=== PATIENT | male | born 1950 | race Caucasian/White ===

== ENCOUNTER → 2018-05-17 | Outpatient (CLI) | payer BC ==
--- NOTE | 2018-05-17 14:06 | XR ---
EXAMINATION TYPE: XR shoulder complete LT DATE OF EXAM: 05/17/2018 COMPARISON: NONE HISTORY: 68-year-old male with chronic left shoulder pain TECHNIQUE: 3 views FINDINGS: Mild degenerative spurring at the acromioclavicular joint. Mild sclerosis of the greater tuberosity s uggesting chronic rotator cuff tendinopathy. Subacromial space is preserved. No acute fracture, sublu xation, or dislocation. IMPRESSION: Mild left AC joint OA. No acute osseous abnormality seen.
== END ==
LOC: RADXRYALE 13:50
PROVIDERS: ATTEND Internal Medicine
DX: M19.012 Primary osteoarthritis, left shoulder (principal)

== ENCOUNTER → 2021-08-24 | Outpatient (CLI) | payer MEDICARE, OTHER ==
--- NOTE | 2021-08-24 10:47 | XR ---
EXAMINATION TYPE: XR elbow complete LT DATE OF EXAM: 08/24/2021 CLINICAL HISTORY: Swelling and pain. TECHNIQUE: Frontal, lateral and oblique images of the left elbow are obtained. COMPARISON: None FINDINGS: There is no acute fracture/dislocation evident in the left elbow. No abnormal fat pad sig ns are seen. No suspicious bony destruction. The overlying soft tissue appears unremarkable particul geri over the posterior aspect of the olecranon. IMPRESSION: As above.
== END | disposition home or self-care (01) ==
LOC: RADXRYALE 10:16
PROVIDERS: ATTEND Internal Medicine
DX: M70.22 Olecranon bursitis, left elbow (principal)

== ENCOUNTER → 2024-01-03 | Outpatient (CLI) | payer MEDICARE ==
[2024-01-03 14:54] LABS: Basophils # (A) 0.06 X 10*3/uL (0.00-0.10); Basophils % (A) 0.7 %; Eosinophils # (A) 0.38 X 10*3/uL (0.04-0.35); Eosinophils % (A) 4.5 %; HCT 42.5 % (39.6-50.0); HGB 13.3 g/dL (13.0-17.0); Lymphocytes # (A) 1.62 X 10*3/uL (0.90-5.00); Lymphocytes % (A) 19.3 %; MCH 28.8 pg (27.0-32.0); MCHC 31.3 g/dL (32.0-37.0); Mean Platelet Volume 10.2 FL (9.5-12.2); Monocytes # (A) 0.64 X 10*3/uL (0.20-1.00); Monocytes % (A) 7.6 %; NRBC Per 100 WBC 0 X 10*3/uL (0.00-0.01); Neutrophils # (A) 5.66 X 10*3/uL (1.80-7.70); Neutrophils % (A) 67.5 %; Platelet Count 325 X 10*3/uL (140-440); RBC 4.62 X 10*6/uL (4.40-5.60); RDW 14.4 % (11.5-14.5); WBC 8.39 X 10*3/uL (4.50-10.00)
[2024-01-03 18:38] LABS: BUN/Creat Ratio 25.62 Ratio (12.00-20.00); Blood Urea Nitrogen 20.5 mg/dL (9.0-27.0); Calcium 9.4 mg/dL (8.7-10.3); Carbon Dioxide 27.9 mmol/L (21.6-31.8); Chloride 98 mmol/L (96-109); Glucose 156 mg/dL (70-110); Potassium 4.5 mmol/L (3.5-5.5); Sodium 137 mmol/L (135-145)
== END | disposition home or self-care (01) ==
LOC: LABPAT 09:24
PROVIDERS: ATTEND Orthopaedic Surgery Hand Surgery
DX: Z01.818 Encounter for other preprocedural examination (principal); I51.89 Other ill-defined heart diseases; I45.10 Unspecified right bundle-branch block; G56.02 Carpal tunnel syndrome, left upper limb; R94.31 Abnormal electrocardiogram [ECG] [EKG]
CPT/HCPCS: 80048; 85025

== ENCOUNTER 2024-01-18 08:32 | Day surgery (SDC) | payer MEDICARE, OTHER ==
--- NOTE | 2024-01-17 10:29 | P.HPOR ---
History of Present Illness H&P Date: 01/17/24 Subjective: This is a 73 year old male that presents today for initial evaluation regarding a several year history of progressively worsening left hand paresthesias in the thumb, index, middle and ring fingers. The patient has tried bracing at night time with only temporary relief. The patient denies any inciting event or neck pain. Physical Examination: LUE: AIN/PIN/Radial/Ulnar/Median motor intact. Radial/Ulnar/Median SILT. 2+/4 Radial/Ulnar pulses palpated. 5/5 APB, 5/5 FDI. Negative Finkelsteins, negative CMC grind, positive Durkan's compression. Impression: 1.) Left carpal tunnel syndrome Plan: Diagnosis and treatment options were discussed with the patient. The patient has failed conservative treatment and would like to pursue a left endoscopic vs open carpal tunnel release. Risks and benefits of surgery including bleeding, infection, damage to surrounding tissue, need for further surgery, possible need to convert to open procedure, residual numbness were discussed and the patient wished to go forward with surgery. CC: Codie Nova MD -Braulio Watts DO Orthopedic Hand/Upper Extremity Surgeon Past Medical History Past Medical History: Diabetes Mellitus, GERD/Reflux, Hyperlipidemia, Hypertension, Memory Impairment, Osteoarthritis (OA) Additional Past Medical History / Comment(s): hx. migraines, Type 2 diabetes, hx. skin cancer, hx. of UTI's, last one in December, will see urologist in April, back problems, knee & hip problems, wears Jobst stockings, wound center last year for wound left foot but all healed per pt., no current edema in extremities History of Any Multi-Drug Resistant Organisms: None Reported Past Surgical History: Cholecystectomy, Orthopedic Surgery Additional Past Surgical History / Comment(s): rt hand surgery x 2 after work accident Past Anesthesia/Blood Transfusion Reactions: Family History of Problems w/ Anesthesia Additional Past Anesthesia/Blood Transfusion Reaction / Comment(s): mother- hallucinations post op Smoking Status: Former smoker - Past Family History Sister(s) Family Medical History: Cancer Father Brother(s) Family Medical History: Rheumatoid Arthritis (RA) Medications and Allergies Home Medications Medication Instructions Recorded Confirmed Type Cyclobenzaprine [Flexeril] 10 mg PO TID PRN 09/17/14 01/16/24 History metFORMIN HCL [Glucophage] 1,000 mg PO BID 09/17/14 01/16/24 History Ferrous Sulfate [Feosol] 65 mg PO TID 08/03/16 01/16/24 History Multivitamin [Men's Multi-Vitamin] 1 each PO DAILY 08/03/16 01/16/24 History Cartilage/Collagen/Bor/Hyalur 1 each PO DAILY 09/01/17 01/16/24 History [Move Free Ultra Tablet] Naproxen 500 mg PO BID 09/01/17 01/16/24 History Omeprazole [PriLOSEC] 20 mg PO AC-BID 09/01/17 01/16/24 History Cetirizine HCl [Zyrtec] 10 mg PO DAILY 01/16/24 01/16/24 History L.acidoph,Paracasei, B.lactis 1 each PO DAILY 01/16/24 01/16/24 History [Probiotic] Repaglinide [Prandin] 1 mg PO AC-TID 01/16/24 01/16/24 History Rosuvastatin [Crestor] 10 mg PO DAILY 01/16/24 01/16/24 History amLODIPine BESYLATE/BENAZEPRIL 1 cap PO DAILY 01/16/24 01/16/24 History [amLODIPine BESYLATE/BENAZEPRIL 5-10 mg] buPROPion XL [Wellbutrin XL] 150 mg PO DAILY 01/16/24 01/16/24 History Allergies Allergy/AdvReac Type Severity Reaction Status Date / Time sulfamethoxazole Allergy flu like Verified 01/16/24 11:21 [From Bactrim] symptoms trimethoprim [From Bactrim] Allergy flu like Verified 01/16/24 11:21 symptoms bacitracin AdvReac topically Verified 01/16/24 11:22 [From Neosporin made wound ([id number])] more red neomycin AdvReac topically Verified 01/16/24 11:22 [From Neosporin made wound ([id number])] more red polymyxin B AdvReac topically Verified 01/16/24 11:22 [From Neosporin made wound ([id number])] more red Physical Examination Osteopathic Statement: *. No significant issues noted on an osteopathic structural exam other than those noted in the History and Physical/Consult.
[~2024-01-18 08:32] MED LIST: DEXAMETHASONE SOD PHOSPHATE 4 MG/ML 1 ML VIAL IV ONE; HYDROmorphone 0.5 MG/0.5 ML SYRINGE IVP PRN; LIDOCAINE 1% (10MG/ML) FOR IV START INTRADERMA PRN; MIDAZOLAM 2 MG/2 ML VIAL IV PRN; ceFAZolin 3 GM in SODIUM CHLORIDE 0.9% 100 ML IVPB PRN
[2024-01-18] MEDS: LACTATED RINGERS 1,000 ML IV SCH (09:08)
[2024-01-18 09:20] LABS: Glucose,Whole Blood 170 mg/dL (70-110)
[2024-01-18] MEDS ORDERED: ONDANSETRON 4 MG/2 ML VIAL ONE (09:20)
[2024-01-18] MEDS: ONDANSETRON 4 MG/2 ML VIAL IVP ONE (09:21)
[2024-01-18] MEDS: BUPIVACAINE (PF) 0.5% 30 ML VIAL SQ ONE ×2 (09:29→09:40)
[2024-01-18] MEDS ORDERED: KETAMINE HCL IN 0.9 % NACL 50 MG/5 ML SYRINGE ONE (09:30)
[2024-01-18] MEDS ORDERED: PROPOFOL 10 MG/ML 20 ML VIAL IV ONE (09:30)
[2024-01-18] MEDS ORDERED: MIDAZOLAM 2 MG/2 ML VIAL ONE (09:30)
[2024-01-18] MEDS ORDERED: fentaNYL (PF) 50 MCG/ML 2 ML AMP ONE (09:30)
[2024-01-18] MEDS: LIDOCAINE 2% INJ 20 MG/ML SQ ONE ×2 (09:30→09:40)
--- NOTE | 2024-01-18 09:53 | P.OP ---
Date of Procedure: 01/18/24 Preoperative Diagnosis: Left carpal tunnel syndrome Postoperative Diagnosis: Left carpal tunnel syndrome Procedure(s) Performed: Left endoscopic carpal tunnel release Anesthesia: MAC Surgeon: Braulio Watts Election Watcher #1: Flaquito Martins Estimated Blood Loss (ml): 0 Pathology: none sent Condition: stable Disposition: PACU Description of Procedure: This is a 74 year old male who presents today for a left endoscopic carpal tunnel release after having failed conservative treatment in the past. Risks and benefits of surgery were discussed with the patient including bleeding, damage to surrounding tissue, infection, need to convert to open procedure, need for further surgery as well as risks of anesthesia including pulmonary embolism and even and the patient wished to proceed with surgical intervention. The patients was seen in the pre-operative area by myself. Consent and H&P were completed and updated. The correct extremity was marked in the pre-operative area by myself and all other questions were answered. Operative Narrative: The patient was brought to the operating room by the department of anesthesia. They remained on the portable stretcher and a rolling hand table was brought to the side of the operative extremity. Pre-operative time out was performed indicating the correct patient, procedure and laterality. All in the room agreed. The patient was then drifted off to sleep by the department of anesthesia. MAC anesthesia was utilized and a 50:50 mixture of 1% Lidocaine and 0.5% bupivacaine was injected into the subcutaneous tissues of the palmar skin, 8ccs total. A nonsterile tourniquet was then applied to the operative extremity and the left upper extremity was then prepped and draped in normal sterile fashion. The operative extremity was the exsanguinated with an esmarch bandage and the tourniquet was inflated to 250mmHg. 15 blade scalpel was utilized to make a transverse incision on the palmar skin just ulnar to the palmaris longus tendon at the level of the distal wrist crease. Ragnell retractor was then placed radially and blunt dissection was performed to reveal the distal forearm fascia. This was lifted with fine Joesph pick ups and Littler tenotomy scissors were then used to open the forearm fascia transversely and a double skin hook was then placed. Hamate finder was placed into the carpal tunnel and then sequential sized dilators were inserted followed by the synovial elevator to separate the flexor tenosynovium from the undersurface of the transverse carpal ligament and a washboard texture was felt. The Micro[employer]ire endoscopic carpal tunnel release system gun was the then inserted into the carpal tunnel hugging the deep portion of the transverse carpal ligament in line with the base of the ring finger. Transverse fibers of the ligament were directly visualized. Pressure was applied on the palm to reveal the distal extent of the transverse carpal ligament. The blade was then deployed and the distal half of the transverse carpal ligament was released. The scope was then brought distal again and remaining transverse fibers were incised with the blade. The proximal half of the transverse carpal ligament was then divided and again the scope was advanced distal and remaining transverse fibers were incised with the blade. The radial and ulnar leaflets were directly visualized and mobile consistent with complete release. Tenotomy scissors were then utilized to release the remaining distal forearm fascia under direct visualization taking care to preserve the palmar cutaneous branch of the median nerve. Skin closure was performed with interrupted 4-0 Monocryl suture followed by steri strips. Sterile dressing was applied consisting 4x4s, Webril, and an jelani bandage. Tourniquet was let down and the hand immediately was well perfused. The patient was then woken by the department of anesthesia and transferred to PACU in stable condition. Flaquito FORD was present for the case in its entirety and assisted in major portions of the case and protection of vital neurovascular structures. Braulio Watts D.O. Orthopedic Hand/Upper Extremity Surgeon
[2024-01-18 09:54] VITALS: RESP 16; TEMP 97.6
[2024-01-18 10:51] VITALS: BP 119/69; PULSE 83
== END 2024-01-18 10:27 | disposition home or self-care (01) ==
LOC: OR 08:32
PROVIDERS: ATTEND Orthopaedic Surgery Hand Surgery
DX: G56.02 Carpal tunnel syndrome, left upper limb (principal); E11.9 Type 2 diabetes mellitus without complications; K21.9 Gastro-esophageal reflux disease without esophagitis; I10 Essential (primary) hypertension; E78.5 Hyperlipidemia, unspecified; M19.90 Unspecified osteoarthritis, unspecified site; Z87.440 Personal history of urinary (tract) infections; Z87.448 Personal history of other diseases of urinary system; Z90.49 Acquired absence of other specified parts of digestive tract; Z87.891 Personal history of nicotine dependence; Z87.890 Personal history of sex reassignment; Z79.899 Other long term (current) drug therapy; Z79.84 Long term (current) use of oral hypoglycemic drugs; Z88.2 Allergy status to sulfonamides; Z88.1 Allergy status to other antibiotic agents
CPT/HCPCS: 29848; J2001; J2250; J2405; J3010; J2704; J0665

== ENCOUNTER → 2024-06-15 | Outpatient (CLI) | payer MEDICARE ==
--- NOTE | 2024-06-22 10:05 | US ---
EXAMINATION TYPE: US kidneys/renal and bladder DATE OF EXAM: 06/15/2024 COMPARISON: US 10/02/2014 CLINICAL INDICATION: Male, 74 years old with history of N39.0 URINARY TRACT INFECTION, SITE NOT SPECI FIED; Frequent UTI TECHNIQUE: Grayscale and color Doppler imaging of the bilateral kidneys and urinary bladder: FINDINGS: EXAM MEASUREMENTS: Right Kidney: 12.6 x 5.8 x 6.1 cm Left Kidney: 11.0 x 5.5 x 5.7 cm *Exam is limited due to gas. Right Kidney: Measures slightly large. Left Kidney: No hydronephrosis or masses seen Bladder: Appears anechoic Bilateral Jets seen: Yes IMPRESSION: No significant abnormality seen. [facility], , 06/22/2024 10:03 AM
== END | disposition home or self-care (01) ==
LOC: RADUSWWP 15:24
PROVIDERS: ATTEND Urology
CPT/HCPCS: 76770